=== PATIENT | female | born 1995 | race Two or more races ===

== ENCOUNTER 2025-05-19 14:30 | Inpatient (IN) | payer OTHER ==
[~2025-05-19] VITALS: Ht 165.1 cm; Wt 89.4 kg
[2025-05-28] MEDS ORDERED: PRENATABS RX T1 EACH (20:57)
[2025-06-03] VITALS (8 sets, daily range): BP systolic 108–137; BP diastolic 20–76; O2SAT 100
[2025-06-03] MEDS ORDERED: RINGERS SOLUTION,LACTATED 1,000 ML IV SCH (04:30)
[2025-06-03 07:15] LABS: BASO % 0.5 % (0.1-1.2); EOS # 0.25 (0.04-0.54); EOS % 2.0 % (0.7-7.0); LYMPH # 2.10 (1.18-3.74); LYMPH % 16.6 % (19.3-53.1); MEAN PLATELET VOLUME 11.80 fl (9.4-12.4); MONO # 1.00 (0.24-0.82); MONO % 7.9 % (4.7-12.5); NEUT # 9.06 (1.56-6.13); NEUT % 71.3 % (34.0-71.1); RED CELL DISTRIBUTION WIDTH 12.9 % (11.6-14.4)
[2025-06-03 07:23] LABS: INR < 0.93
[2025-06-03] MEDS ORDERED: OXYTOCIN 500 ML IV SCH (08:15)
[2025-06-03] MEDS ORDERED: MORPHINE SULFATE 4 MG/ML CARTRIDGE IV PRN (11:45)
[2025-06-03] MEDS ORDERED: ERYTHROMYCIN BASE OPHT 1GM EACH TUBE OP ONE (15:00)
[2025-06-03] MEDS ORDERED: CHLORHEXIDINE GLUCONATE 120 ML BOTTLE TOP ONE (15:00)
[2025-06-03] MEDS ORDERED: OXYTOCIN 1,000 ML IV SCH (15:00)
[2025-06-03] MEDS ORDERED: DOCUSATE SODIUM 100MG CAP PO SCH (17:15)
[2025-06-03] MEDS ORDERED: PNV,CALCIUM 72/IRON/FOLIC ACID 1 TAB TABLET PO SCH (17:15)
[2025-06-04] VITALS: BP 115/72
[2025-06-04 08:25] VITALS: BP 130/86
[2025-06-04 16:00] VITALS: BP 95/62
[2025-06-04 20:00] VITALS: BP 114/76
[2025-06-05 01:07] VITALS: BP 107/69
[2025-06-05 08:29] VITALS: BP 116/73
== END 2025-06-05 13:25 | disposition home or self-care (01) | DRG 807 ==
LOC: OB/GYN 05-30 14:30 → LDR 06-03 04:19 → OB/GYN 06-03 16:43
PROVIDERS: ADMIT Obstetrics & Gynecology; ATTEND Obstetrics & Gynecology
PROC: 10D07Z6 Extraction of Products of Conception, Vacuum, Via Natural or Artificial Opening (ICD-10-PCS; principal; 2025-06-03)
PROC: 0UQG7ZZ Repair Vagina, Via Natural or Artificial Opening (ICD-10-PCS; 2025-06-03)
PROC: 4A1HXCZ Monitoring of Products of Conception, Cardiac Rate, External Approach (ICD-10-PCS; 2025-06-03)
DX: O71.4 Obstetric high vaginal laceration alone (principal); Z37.0 Single live birth; O66.5 Attempted application of vacuum extractor and forceps; O69.81X0 Labor and delivery complicated by cord around neck, without compression, not applicable or unspecified; Z3A.40 40 weeks gestation of pregnancy

== ENCOUNTER 2025-05-27 14:55 | Outpatient (CLI) | payer OTHER ==
[2025-05-27 15:27] VITALS: BP 117/77
[2025-05-28] MEDS ORDERED: PRENATABS RX T1 EACH (20:57)
== END 2025-05-27 16:38 | disposition home or self-care (01) ==
LOC: NST 14:55
PROVIDERS: ATTEND Obstetrics & Gynecology Maternal & Fetal Medicine
DX: Z34.83 Encounter for supervision of other normal pregnancy, third trimester (principal)

== ENCOUNTER 2025-05-28 08:49 | Outpatient (CLI) | payer OTHER ==
[2025-05-28] MEDS ORDERED: PRENATABS RX T1 EACH (20:57)
== END 2025-05-28 09:44 | disposition home or self-care (01) ==
LOC: NST 08:49
PROVIDERS: ATTEND Obstetrics & Gynecology
DX: Z34.83 Encounter for supervision of other normal pregnancy, third trimester (principal)

== ENCOUNTER 2025-05-28 20:31 | Emergency (ER) | payer OTHER ==
[~2025-05-28] VITALS: Ht 165.1 cm; Wt 90.3 kg
[2025-05-28] MEDS ORDERED: PRENATABS RX T1 EACH (20:57)
== END 2025-05-28 21:56 | disposition home or self-care (01) ==
LOC: ER 20:42
DX: O9A.213 Injury, poisoning and certain other consequences of external causes complicating pregnancy, third trimester (principal); Z3A.40 40 weeks gestation of pregnancy; W18.39XA Other fall on same level, initial encounter; Y93.K1 Activity, walking an animal; Y92.89 Other specified places as the place of occurrence of the external cause; Y99.9 Unspecified external cause status; Z88.0 Allergy status to penicillin

== ENCOUNTER 2025-06-01 09:54 | Outpatient (CLI) | payer OTHER ==
[~2025-06-01 09:54] MED LIST: PRENATABS RX T1 EACH
== END 2025-06-01 11:00 | disposition home or self-care (01) ==
LOC: NST 09:54
PROVIDERS: ATTEND Obstetrics & Gynecology
DX: Z34.83 Encounter for supervision of other normal pregnancy, third trimester (principal)